=== PATIENT | female | born 1955 | race Caucasian/White ===

== ENCOUNTER 2020-05-25 13:29 | Inpatient (IN) ==
[2020-05-25] MEDS ORDERED: levoFLOXacin 750 MG/150 ML 750 MG/150 ML BAG IVPB ONE (14:25)
[2020-05-25] MEDS ORDERED: Ipratropium/Albuterol Neb 3 ML IH ONE (14:51)
[2020-05-25 15:04] LABS: Adenovirus Not Detected (Not Detect); Bordetella Pertussis Not Detected (Not Detect); Chlamydophila pneumoniae Not Detected (Not Detect); Coronavirus 229E Not Detected (Not Detect); Coronavirus HKU1 Not Detected (Not Detect); Coronavirus NL63 Not Detected (Not Detect); Coronavirus OC43 Not Detected (Not Detect); Human Metapneumovirus Not Detected (Not Detect); Human Rhinovirus/Enterovirus Not Detected (Not Detect); Influenza A Subtype 2009 H1 Not Detected (Not Detect); Influenza B Not Detected (Not Detect); Mycoplasma pneumoniae Not Detected (Not Detect); Parainfluenza Virus 1 Not Detected (Not Detect); Parainfluenza Virus 2 Not Detected (Not Detect); Parainfluenza Virus 3 Not Detected (Not Detect); Parainfluenza Virus 4 Not Detected (Not Detect); Respiratory Syncytial Virus Not Detected (Not Detect); SARS-CoV-2 DETECTED (Not Detect)
[2020-05-25 15:08] LABS: Basophils # 0.1 K/mcL (0.0-0.2); Basophils % 0.9 %; Eosinophils % 0.1 %; Hemoglobin 18.8 g/dL (11.5-15.4); Immature Granulocytes % 0.9 % (0-4); Lymphocytes # 1.4 K/mcL (0.6-4.6); Lymphocytes % 9.5 %; Mean Corpuscular HGB Conc 32.4 g/dL (31.6-35.5); Mean Corpuscular Hemoglobin 27.6 pg (28.0-33.3); Mean Platelet Volume 10.9 fL (9.4-12.4); Monocytes # 0.8 K/mcL (0.0-1.3); Monocytes % 5.6 %; Neutrophils # 12.5 K/mcL (1.6-8.9); Nucleated Red Blood Cells 0.5 /100 WBC (0); Platelet Count 151 K/mcL (140-400); Red Blood Count 6.82 M/mcL (3.82-4.97); Red Cell Distribution Width 16.7 % (11.5-14.5)
[2020-05-25 15:29] LABS: Albumin 3.5 g/dL (3.5-5.7); Albumin/Globulin Ratio 0.7 (1.1-2.2); Bilirubin,Direct 0.4 mg/dL (0.0-0.2); Bilirubin,Indirect 0.8 mg/dL (0.0-1.0); Bilirubin,Total 1.2 mg/dL (0.3-1.0); Calcium 8.8 mg/dL (8.6-10.3); Magnesium 3.1 mg/dL (1.6-2.6); Phosphorous 4.5 mg/dL (2.7-4.5); Potassium 3.7 mEq/L (3.5-5.1); Total Protein 8.5 g/dL (6.4-8.9)
[2020-05-25 15:31] LABS: Troponin I 0.46 ng/mL (< 0.04)
[2020-05-25] MEDS ORDERED: Dexamethasone 4 MG/ML VIAL IVP ONE ×2 (16:05→16:11)
[2020-05-25 16:10] LABS: Large Platelets Present (Not Present); Polychromasia 1+ (Not Present); Reactive Lymphocytes Present (Not Present); Smudge Cells Present (Not Present)
[2020-05-25] MEDS ORDERED: Aspirin 81 MG TAB.CHEW PO STA (16:11)
[2020-05-25 16:18] LABS: VBG HCO3 20 mEq/L (21-27); VBG PCO2 26 mmHg (41-51); VBG PH 7.48 pH Units (7.32-7.42); VBG PO2 232 mmHg (25-50)
[2020-05-25] MEDS ORDERED: 0.9 % Sodium Chloride 1,000 ML IV ONE (16:28)
[2020-05-25] MEDS ORDERED: Naloxone 0.4 MG/ML INJ IVP PRN (16:30)
[2020-05-25 17:00] LABS: INR 1.4; Prothrombin Time 15.8 Seconds (9.4-12.1)
[2020-05-25 17:02] LABS: Activated Partial Thrombo Time 23.9 Seconds (26.0-36.0)
[2020-05-25] MEDS ORDERED: D5% in Water 1,000 ML IVC PRN (17:35)
[2020-05-25] MEDS ORDERED: *HR* Dextrose 50 % in Water (Vial) 50 ML VIAL IVP PRN (17:35)
[2020-05-25] MEDS ORDERED: Dextrose Gel 15 GM/37.5 ML TUBE PO PRN ×2 (17:35)
[2020-05-25] MEDS ORDERED: *HR* Heparin 5,000 UNIT/ML VIAL IVP PRN ×2 (18:13)
[2020-05-25] MEDS ORDERED: *HR* Heparin 5,000 UNIT/ML VIAL IVP ONE (18:13)
[2020-05-25] MEDS: Doxycycline 100 MG in 0.9 % Sodium Chloride Mini Bag 100 ML IVPB SCH (19:10)
[2020-05-25] MEDS: Heparin 25,000UNIT/250ML 1/2NS 25,000 UNIT/250 ML IV.SOLN IVC SCH (19:35)
[2020-05-25] MEDS: Acetaminophen 325 MG TABLET PO PRN (20:09)
[2020-05-25] MEDS ORDERED: Saline Nasal Spray 44 ML BOTTLE NS PRN (20:12)
[2020-05-25] MEDS: Insulin LISPRO 300 UNITS/3 ML VIAL SUBQ SCH (20:27)
[2020-05-25 20:29] LABS: Hematocrit 53.6 % (35.3-44.9); Hemoglobin 18.3 g/dL (11.5-15.4); Mean Corpuscular HGB Conc 34.1 g/dL (31.6-35.5); Mean Corpuscular Hemoglobin 29.8 pg (28.0-33.3); Mean Corpuscular Volume 87.2 fL (83.0-100.0); Mean Platelet Volume 11.8 fL (9.4-12.4); Platelet Count 126 K/mcL (140-400); Red Blood Count 6.15 M/mcL (3.82-4.97); Red Cell Distribution Width 17.2 % (11.5-14.5); White Blood Count 14.5 K/mcL (4.3-11.1)
[2020-05-25] MEDS ORDERED: *HR* LORazepam 2 MG/ML VIAL IVP ONE (21:31)
[2020-05-25] MEDS: Ipratropium 1 PUFF INHALER IH SCH (21:38)
[2020-05-26 02:36] LABS: Basophils # 0.1 K/mcL (0.0-0.2); Basophils % 0.6 %; Hematocrit 51.1 % (35.3-44.9); Immature Granulocytes % 1.4 % (0-4); Lymphocytes # 1.2 K/mcL (0.6-4.6); Lymphocytes % 10.5 %; Mean Corpuscular HGB Conc 33.3 g/dL (31.6-35.5); Mean Corpuscular Hemoglobin 28.2 pg (28.0-33.3); Mean Corpuscular Volume 84.9 fL (83.0-100.0); Mean Platelet Volume 11.2 fL (9.4-12.4); Monocytes # 0.2 K/mcL (0.0-1.3); Monocytes % 1.8 %; Nucleated Red Blood Cells 0.2 /100 WBC (0); Platelet Count 135 K/mcL (140-400); Red Blood Count 6.02 M/mcL (3.82-4.97); Segmented Neutrophils % 85.7 %; White Blood Count 11.7 K/mcL (4.3-11.1)
[2020-05-26 02:45] LABS: INR 1.4; Prothrombin Time 15.9 Seconds (9.4-12.1)
[2020-05-26 02:55] LABS: Potassium 3.9 mEq/L (3.5-5.1)
[2020-05-26 02:58] LABS: Platelet Estimate Normal (Normal)
[2020-05-26] MEDS: Ipratropium 1 PUFF INHALER IH SCH ×4 (04:13→20:05)
[2020-05-26] MEDS: Doxycycline 100 MG in 0.9 % Sodium Chloride Mini Bag 100 ML IVPB SCH ×2 (06:49→19:50)
[2020-05-26] MEDS: levoFLOXacin 750 MG/150 ML 750 MG/150 ML BAG IVPB SCH (08:37)
[2020-05-26] MEDS: Insulin LISPRO 300 UNITS/3 ML VIAL SUBQ SCH ×4 (08:58→21:25)
[2020-05-26] MEDS ORDERED: Dexamethasone 4 MG/ML VIAL IVP SCH (09:00)
[2020-05-26] MEDS: Heparin 25,000UNIT/250ML 1/2NS 25,000 UNIT/250 ML IV.SOLN IVC SCH (14:06)
[2020-05-26] MEDS: Insulin DETEMIR 100 UNIT/ML X5UNITS SUBQ SCH (14:12)
[2020-05-26] MEDS ORDERED: Dexamethasone Sodium Phos/PF 10 MG/ML VIAL IVP ONE (14:38)
[2020-05-26 14:47] LABS: Estimated Average Glucose 260 mg/dl; Hemoglobin A1C 10.7 %
[2020-05-26] MEDS: Acetaminophen 325 MG TABLET PO PRN (21:24)
[2020-05-27] MEDS: Ipratropium 1 PUFF INHALER IH SCH ×4 (04:18→21:10)
[2020-05-27] MEDS: Acetaminophen 325 MG TABLET PO PRN ×2 (04:44→20:02)
[2020-05-27 05:48] LABS: Bacteria,Urine Few per hpf (None-Few); Bilirubin,Urine Negative (Negative); Blood,Urine Negative (Negative); Budding Yeast,Urine Many per hpf (None Seen); Clarity,Urine Turbid (Clear); Color,Urine Yellow (Yellow); Glucose,Urine (UA) 50 mg/dL (Normal); Hyaline Casts,Urine Few per lpf (None Seen); Ketones,Urine Negative (Negative); Leukocyte Esterase,Urine Negative (Negative); Mucus,Urine Few per lpf (None-Few); Nitrite,Urine Negative (Negative); PH,Urine 5.5 pH Units (5.0-8.0); Protein,Urine 30 mg/dL (Neg-Trace); RBC,Urine TNTC per hpf (0-3); Specific Gravity,Urine 1.025 (1.010-1.025); Squamous Epithelial Cell,Urine Few per hpf (None-Few); WBC,Urine 15-30 per hpf (0-3)
[2020-05-27] MEDS: Doxycycline 100 MG in 0.9 % Sodium Chloride Mini Bag 100 ML IVPB SCH ×2 (06:15→16:49)
[2020-05-27 06:23] LABS: Basophils # 0.1 K/mcL (0.0-0.2); Basophils % 0.7 %; Eosinophils % 0.2 %; Hematocrit 53.1 % (35.3-44.9); Hemoglobin 17.2 g/dL (11.5-15.4); Immature Granulocytes % 0.9 % (0-4); Lymphocytes # 1.8 K/mcL (0.6-4.6); Lymphocytes % 14.9 %; Mean Corpuscular HGB Conc 32.4 g/dL (31.6-35.5); Mean Corpuscular Hemoglobin 27.4 pg (28.0-33.3); Mean Corpuscular Volume 84.7 fL (83.0-100.0); Mean Platelet Volume 11.6 fL (9.4-12.4); Monocytes # 0.8 K/mcL (0.0-1.3); Monocytes % 6.5 %; Neutrophils # 9.4 K/mcL (1.6-8.9); Platelet Count 176 K/mcL (140-400); Red Blood Count 6.27 M/mcL (3.82-4.97); Red Cell Distribution Width 15.9 % (11.5-14.5); Segmented Neutrophils % 76.8 %; White Blood Count 12.2 K/mcL (4.3-11.1)
[2020-05-27 06:29] LABS: Calcium 8.6 mg/dL (8.6-10.3); Magnesium 3.5 mg/dL (1.6-2.6); Potassium 3.8 mEq/L (3.5-5.1)
[2020-05-27 06:53] LABS: Platelet Estimate Normal (Normal)
[2020-05-27] MEDS: levoFLOXacin 750 MG/150 ML 750 MG/150 ML BAG IVPB SCH (08:48)
[2020-05-27] MEDS ORDERED: Ondansetron ODT 4 MG TAB.RAPDIS SL PRN (11:54)
[2020-05-27] MEDS: Heparin 25,000UNIT/250ML 1/2NS 25,000 UNIT/250 ML IV.SOLN IVC SCH (11:55)
[2020-05-27] MEDS: Insulin LISPRO 300 UNITS/3 ML VIAL SUBQ SCH ×4 (11:57→20:03)
[2020-05-27] MEDS: Dexamethasone Sodium Phos/PF 10 MG/ML VIAL IVP SCH (11:58)
[2020-05-27] MEDS: Insulin DETEMIR 100 UNIT/ML X5UNITS SUBQ SCH (11:58)
[2020-05-27] MEDS ORDERED: Isovue-370 500 ML BOTTLE IVP ONE (13:39)
[2020-05-27] MEDS ORDERED: Apixaban 5 MG TABLET PO SCH (17:00)
[2020-05-27] MEDS: Apixaban 5 MG TABLET PO SCH (17:21)
[2020-05-28 02:39] LABS: Basophils % 0.3 %; Eosinophils # 0.1 K/mcL (0.0-0.6); Eosinophils % 1.1 %; Hematocrit 51.6 % (35.3-44.9); Hemoglobin 16.5 g/dL (11.5-15.4); Immature Granulocytes % 0.9 % (0-4); Lymphocytes # 1.1 K/mcL (0.6-4.6); Lymphocytes % 12.1 %; Mean Corpuscular Hemoglobin 27.2 pg (28.0-33.3); Mean Corpuscular Volume 85.1 fL (83.0-100.0); Mean Platelet Volume 10.9 fL (9.4-12.4); Monocytes # 0.8 K/mcL (0.0-1.3); Monocytes % 8.7 %; Neutrophils # 7.2 K/mcL (1.6-8.9); Platelet Count 229 K/mcL (140-400); Red Blood Count 6.06 M/mcL (3.82-4.97); Red Cell Distribution Width 15.8 % (11.5-14.5); Segmented Neutrophils % 76.9 %; White Blood Count 9.3 K/mcL (4.3-11.1)
[2020-05-28 02:53] LABS: Calcium 8.6 mg/dL (8.6-10.3); Magnesium 3.2 mg/dL (1.6-2.6); Phosphorous 4.3 mg/dL (2.7-4.5); Potassium 3.5 mEq/L (3.5-5.1)
[2020-05-28] MEDS: Ipratropium 1 PUFF INHALER IH SCH ×2 (03:58→11:00)
[2020-05-28] MEDS: Doxycycline 100 MG in 0.9 % Sodium Chloride Mini Bag 100 ML IVPB SCH (04:54)
[2020-05-28] MEDS: Apixaban 5 MG TABLET PO SCH (08:04)
[2020-05-28] MEDS: Dexamethasone Sodium Phos/PF 10 MG/ML VIAL IVP SCH (08:04)
[2020-05-28] MEDS: Acetaminophen 325 MG TABLET PO PRN (08:05)
[2020-05-28] MEDS: Insulin LISPRO 300 UNITS/3 ML VIAL SUBQ SCH (08:10)
[2020-05-28] MEDS: Insulin DETEMIR 100 UNIT/ML X5UNITS SUBQ SCH (08:13)
[2020-05-28 11:24] VITALS: BP 147/74
[2020-05-28] MEDS ORDERED: *HR* LORazepam 2 MG/ML VIAL IVP ONE (11:35)
[2020-05-28] MEDS ORDERED: Doxycycline 100 MG CAPSULE PO SCH (21:00)
[2020-06-02] MEDS ORDERED: Apixaban 5 MG TABLET PO SCH ×2 (09:00→21:00)
== END 2020-05-28 13:11 | disposition left against medical advice (07) | DRG 871 ==
LOC: EMEROOARM 13:29 → 2NENU 13:29
PROVIDERS: ADMIT Internal Medicine; ATTEND Internal Medicine